=== PATIENT | male | born 1980 | race African-American/Black ===

== ENCOUNTER 2018-11-01 18:17 | Emergency (ER) | payer SELFPAY ==
[~2018-11-01] VITALS: Ht 170.2 cm; Wt 72.6 kg
[2018-11-01 18:31] VITALS: BP 115/69
[2018-11-01] MEDS ORDERED: ASPIRIN 325 MG TABLET PO ONE (18:45)
[2018-11-01 18:55] LABS: BASO % 0 % (0-3); EOS # 0.1 x10^3/uL (0.0-0.7); EOS % 2 % (0-3); HEMATOCRIT 42.9 % (39.0-53.0); HEMOGLOBIN 14.1 g/dL (13.0-17.5); LYMPH # 0.9 x10^3/uL (1.0-4.8); LYMPH % 21 % (24-48); MEAN CORPUSCULAR HEMOGLOBIN 27 pg (25-35); MEAN CORPUSCULAR HGB CONC 33 g/dL (31-37); MEAN CORPUSCULAR VOLUME 83 fL (79-100); MONO # 0.3 x10^3/uL (0.0-1.1); MONO % 6 % (0-9); NEUT % 71 % (31-73); PLATELET COUNT 330 x10^3/uL (140-400); RED BLOOD COUNT 5.17 x10^6/uL (4.30-5.70); RED CELL DISTRIBUTION WIDTH 13.6 % (11.5-14.5); WHITE BLOOD COUNT 4.2 x10^3/uL (4.0-11.0)
--- NOTE | 2018-11-01 19:16 | PHYS DOC ---
Past Medical History Past Medical History: No Pertinent History Past Surgical History: No Surgical History Alcohol Use: Occasionally Drug Use: None Adult General Chief Complaint Chief Complaint: CHEST PAIN HPI HPI Patient is a 38 year old male with no significant medical history who presents today complaining of 8 out of 10 sharp intermittent left-sided chest pain that has been going on for the last 3 days. Patient states his pain is worse when he takes a deep breaths or moves around. He states he has not taken anything for his pain. Denies any pain radiating to his chest or upper extremities. Patient states he is a smoker. Review of Systems Review of Systems Constitutional: Denies fever or chills [] Eyes: Denies change in visual acuity, redness, or eye pain [] HENT: Denies nasal congestion or sore throat [] Respiratory: Denies cough or shortness of breath [] Cardiovascular: Reports left-sided chest pain GI: Denies abdominal pain, nausea, vomiting, bloody stools or diarrhea [] : Denies dysuria or hematuria [] Musculoskeletal: Denies back pain or joint pain [] Integument: Denies rash or skin lesions [] Neurologic: Denies headache, focal weakness or sensory changes [] All other systems were reviewed and found to be within normal limits, except as documented in this note. Current Medications Current Medications Current Medications Medications (Trade) Dose Ordered Sig/Gabby Start Time Stop Time Status Last Admin Dose Admin Aspirin (Braydon Aspirin) 325 mg 1X ONCE 11/01/18 18:45 11/01/18 18:46 DC 11/01/18 18:44 325 MG Allergies Allergies Allergies Coded Allergies Type Severity Reaction Last Updated Verified No Known Drug Allergies 11/01/14 No Physical Exam Physical Exam Constitutional: Well developed, well nourished, no acute distress, non-toxic appearance. [] HENT: Normocephalic, atraumatic, bilateral external ears normal, oropharynx moist, no oral exudates, nose normal. [] Eyes: PERRLA, EOMI, conjunctiva normal, no discharge. [] Neck: Normal range of motion, no tenderness, supple, no stridor. [] Cardiovascular:Heart rate regular rhythm, no murmur [] Lungs & Thorax: Bilateral breath sounds clear to auscultation [] Abdomen: Bowel sounds normal, soft, no tenderness, no masses, no pulsatile masses. [] Skin: Warm, dry, no erythema, no rash. [] Back: No tenderness, no CVA tenderness. [] Extremities: No tenderness, no cyanosis, no clubbing, ROM intact, no edema. [] Neurologic: Alert and oriented X 3, normal motor function, normal sensory function, no focal deficits noted. [] Psychologic: Affect normal, judgement normal, mood normal. [] Current Patient Data Vital Signs Vital Signs Date Time Temp Pulse Resp B/P (MAP) Pulse Ox O2 Delivery O2 Flow Rate FiO2 11/01/18 18:31 98.8 67 16 115/69 (84) 100 Room Air 98.8 Lab Values Laboratory Tests Test 11/01/18 18:48 11/01/18 19:12 White Blood Count 4.2 x10^3/uL (4.0-11.0) Red Blood Count 5.17 x10^6/uL (4.30-5.70) Hemoglobin 14.1 g/dL (13.0-17.5) Hematocrit 42.9 % (39.0-53.0) Mean Corpuscular Volume 83 fL (79-100) Mean Corpuscular Hemoglobin 27 pg (25-35) Mean Corpuscular Hemoglobin Concent 33 g/dL (31-37) Red Cell Distribution Width 13.6 % (11.5-14.5) Platelet Count 330 x10^3/uL (140-400) Neutrophils (%) (Auto) 71 % (31-73) Lymphocytes (%) (Auto) 21 % (24-48) L Monocytes (%) (Auto) 6 % (0-9) Eosinophils (%) (Auto) 2 % (0-3) Basophils (%) (Auto) 0 % (0-3) Neutrophils # (Auto) 3.0 x10^3uL (1.8-7.7) Lymphocytes # (Auto) 0.9 x10^3/uL (1.0-4.8) L Monocytes # (Auto) 0.3 x10^3/uL (0.0-1.1) Eosinophils # (Auto) 0.1 x10^3/uL (0.0-0.7) Basophils # (Auto) 0.0 x10^3/uL (0.0-0.2) Sodium Level 140 mmol/L (136-145) Potassium Level 3.8 mmol/L (3.5-5.1) Chloride Level 102 mmol/L (98-107) Carbon Dioxide Level 31 mmol/L (21-32) Anion Gap 7 (6-14) Blood Urea Nitrogen 14 mg/dL (8-26) Creatinine 1.1 mg/dL (0.7-1.3) Estimated GFR (Cockcroft-Gault) 91.1 BUN/Creatinine Ratio 13 (6-20) Glucose Level 137 mg/dL (70-99) H Calcium Level 8.9 mg/dL (8.5-10.1) Magnesium Level 1.9 mg/dL (1.8-2.4) Total Bilirubin 0.6 mg/dL (0.2-1.0) Aspartate Amino Transferase (AST) 12 U/L (15-37) L Alanine Aminotransferase (ALT) 19 U/L (16-63) Alkaline Phosphatase 83 U/L (46-116) Troponin I Quantitative < 0.017 ng/mL (0.000-0.055) PG-Sou-R-Type Natriuretic Peptide 6 pg/mL (0-124) Total Protein 7.6 g/dL (6.4-8.2) Albumin 4.0 g/dL (3.4-5.0) Albumin/Globulin Ratio 1.1 (1.0-1.7) Thyroid Stimulating Hormone (TSH) 0.795 uIU/mL (0.358-3.74) Ethyl Alcohol Level < 10 mg/dL (0-10) Urine Opiates Screen Neg (NEG) Urine Methadone Screen Neg (NEG) Urine Barbiturates Neg (NEG) Urine Phencyclidine Screen Neg (NEG) Urine Amphetamine/Methamphetamine Neg (NEG) Urine Benzodiazepines Screen Neg (NEG) Urine Cocaine Screen Neg (NEG) Urine Cannabinoids Screen Neg (NEG) Urine Ethyl Alcohol Neg (NEG) Laboratory Tests 11/01/18 18:48 Laboratory Tests 11/01/18 18:48 EKG EKG 18:[address] Andrade sinus rhythm HR 66 no STEMI[] Radiology/Procedures Radiology/Procedures Chest x-ray interpreted by Dr. Andrade is negative for any acute findings.[] Course & Med Decision Making Course & Med Decision Making Pertinent Labs and Imaging studies reviewed. (See chart for details) This is a 38 year old male presenting today with left-sided chest pain intermittently for 3 days. Heart score is 1 due to history of smoking. Vitals on arrival to the ED temperature 98.8, heart rate 67, respirations 16 on room air, O2 sats 100%, blood pressure 115/69. CBC, CMP, troponin with no acute findings. Chest x-ray with no acute findings, EKG was negative, patient was given an aspirin on arrival to the ED. He is in no distress. With a heart score of 1, this patient is appropriate for outpatient follow-up with the warm in. Patient was discharged to home, encouraged to consider smoking cessation. Provided return precautions and discharged in stable condition. Dragon Disclaimer Dragon Disclaimer This electronic medical record was generated, in whole or in part, using a voice recognition dictation system. Departure Departure Impression: Primary Impression: Chest pain Additional Impression: Smoking addiction Disposition: , SELF-CARE Condition: STABLE Referrals: NO PCP (PCP) SANYA MORALES MD follow up next week if symptoms continue Patient Instructions: Chest Pain (Nonspecific), Smoking Cessation, Tips For Success Additional Instructions: You were evaluated in the emergency room for chest pain. We encourage you to consider smoking cessation. Take aspirin or ibuprofen as needed for pain. You can also take Tylenol as needed for pain too. Follow-up with the provided warm in in the course of next week. Come back to the ED at any point symptoms worsen. Attending Signature Attending Signature I have reviewed the PA/ESTHETICIAN AND MANAGER MEDICAL SPA's note and plan of care. I was available for consultation as needed during the patient's visit in the emergency department. I agree with the clinical impression, plan, and disposition. Problem Qualifiers Primary Impression: Chest pain Chest pain type: unspecified Qualified Codes: R07.9 - Chest pain, unspecified JEREMIAS LAMBERT ACADEMIC RECORDS SPECIALIST Nov 01, 2018 19:16 RONN ANDRADE DO Nov 01, 2018 23:42
[2018-11-01 19:22] LABS: CALCIUM 8.9 mg/dL (8.5-10.1); CREATININE 1.1 mg/dL (0.7-1.3); GFR 91.1; POTASSIUM 3.8 mmol/L (3.5-5.1)
[2018-11-01 19:28] LABS: ALBUMIN/GLOBULIN RATIO 1.1 (1.0-1.7); MAGNESIUM 1.9 mg/dL (1.8-2.4); TOTAL BILIRUBIN 0.6 mg/dL (0.2-1.0); TOTAL PROTEIN 7.6 g/dL (6.4-8.2)
[2018-11-01 19:31] LABS: BARBITURATES NEG (NEG); BENZODIAZEPINES NEG (NEG); CANNABINOIDS NEG (NEG); COCAINE NEG (NEG); METHADONE NEG (NEG); OPIATES NEG (NEG); PHENCYCLIDINE NEG (NEG)
[2018-11-01 19:38] LABS: AMPHETAMINE/METHAMPHETAMINE NEG (NEG)
--- NOTE | 2018-11-01 19:57 | EKG ---
[facility] [address] [place] [address] Test Date: 2018-11-01 Test Time: 18:22:48 Pat Name: GEN POOLE Department: Room: Gender: M Supply Chain Coordinator: : 1980 Requested By: JEREMIAS LAMBERT Order Number: [id number] Reading MD: Erick Dumont MD Measurements Intervals [place] Rate: 66 P: 56 IN: 174 QRS: 77 QRSD: 100 T: 40 QT: 398 QTc: 419 Interpretive Statements SINUS RHYTHM Electronically Signed On 11-03-2018 10:31:50 [employer]GG[employer] LOADER by Erick Dumont MD
--- NOTE | 2018-11-01 20:20 | RAD ---
Two-view chest 11/01/2018 CLINICAL INDICATION: Chest pain. COMPARISON: Chest 11/01/2014 FINDINGS: Cardiac and mediastinal silhouettes unremarkable. There are mediastinal and right hilar calcified granulomas. No pleural effusion, pneumothorax or focal consolidation. IMPRESSION: No acute cardiopulmonary abnormality. Electronically signed by: Jg Bearden MD (11/01/2018 8:16 PM) [facility]
== END 2018-11-01 20:19 | disposition home or self-care (01) ==
LOC: ER 18:17
DX: R07.89 Other chest pain (principal); F17.200 Nicotine dependence, unspecified, uncomplicated
CPT/HCPCS: 36415; 71046; 80053; 80307; 83735; 83880; 84443; 84484; 85025; 93005; 99284; G0480